=== PATIENT | female | born 1965 | race Caucasian/White ===

== ENCOUNTER 2024-05-01 09:40 | Observation (INO) | payer SELFPAY ==
[2024-05-01] VITALS (29 sets, daily range): BP systolic 106–136; BP diastolic 51–88; PULSE 66–88; RESP 7–20; TEMP 35.7–36.9; O2SAT 89–99; BMI 30.9
--- NOTE | 2024-05-01 09:43 | XRR_ITS ---
PROCEDURE INFORMATION: Exam: XR Right Knee Exam date and time: 05/01/2024 9:53 AM Age: 58 years old Clinical indication: Injury or trauma; Fall; Blunt trauma; Knee; Right; Additional info: Fall, knee pain TECHNIQUE: Imaging protocol: Radiologic exam of the right knee. Views: 3 views. COMPARISON: No relevant prior studies available. FINDINGS: Bones/joints: Comminuted fracture of the proximal tibia. Suprapatellar knee joint effusion with likely lipohemarthrosis. Soft tissues: Soft tissues appear mildly swollen about the lower knee. XR/XR knee RT 3V* [id number] IMPRESSION: 1. Comminuted fracture of the proximal tibia. 2. Suprapatellar knee joint effusion with likely lipohemarthrosis.
[2024-05-01] MEDS: HYDROmorphone 1 mg/mL INJ 1 mL IVP ×2 (09:54→11:15)
--- NOTE | 2024-05-01 09:56 | XRR_ITS ---
PROCEDURE INFORMATION: Exam: XR Chest Exam date and time: 05/01/2024 9:57 AM Age: 58 years old Clinical indication: Pre-operative exam; Cardiovascular screening and respiratory screening exam; Additional info: Knee fracture, presurgical workup TECHNIQUE: Imaging protocol: Radiologic exam of the chest. Views: 1 view. COMPARISON: CR XR chest 1V [id number] 11/21/2018 10:59 AM FINDINGS: Lungs: Unremarkable. No consolidation. Pleural spaces: Unremarkable. No pleural effusion. No pneumothorax. Heart/Mediastinum: Unremarkable. No cardiomegaly. Bones/joints: Unremarkable. XR/XR chest 1V portable [id number] IMPRESSION: No acute findings.
--- NOTE | 2024-05-01 09:57 | W.ED.EXTPRO ---
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 She has swelling in her proximal lower leg and knee. Appears to have some deformity. Severe pain with any movement. She is neurovascularly intact. She suffered no other injuries. She did not hit her head. She had no loss consciousness. She is not on any blood thinners. She has no major medical problems. Last food and drink was last night at 8 PM. Review of Systems Narrative: Constitutional symptoms: Negative except as documented in HPI. Skin symptoms: Negative except as documented in HPI. Eye symptoms: Negative except as documented in HPI. ENMT symptoms: Negative except as documented in HPI. Respiratory symptoms: Negative except as documented in HPI. Cardiovascular symptoms: Negative except as documented in HPI. Gastrointestinal symptoms: Negative except as documented in HPI. Genitourinary symptoms: Negative except as documented in HPI. Musculoskeletal symptoms: Negative except as documented in HPI. Neurologic symptoms: Negative except as documented in HPI. Psychiatric symptoms: Negative except as documented in HPI. Endocrine symptoms: Negative except as documented in HPI. [facility] ED PFSH: Medical History (Updated 05/01/24 @ 10:23 by Brenda Amaya MD) Hot flashes Obesity (BMI 30-39.9) Social History (Updated 02/18/21 @ 08:12 by Laura Gann LPN) Smoking and tobacco/nicotine status: former use of tobacco/nicotine Second hand smoke exposure: No Alcohol intake: never Physical Exam Narrative: EXAM NARRATIVE: General: Alert, no acute distress. Skin: Warm, dry. Head: Normocephalic, atraumatic. Neck: Supple, trachea midline. Eye: Extraocular movements are intact. Ears, nose, mouth and throat: mucosa moist. Cardiovascular: Regular, Normal peripheral perfusion. Respiratory: Lungs are clear to auscultation, respirations are non-labored, breath sounds are equal, Symmetrical chest wall expansion. Gastrointestinal: Soft, Nontender, Non distended Musculoskeletal: Deformity and swelling of the proximal right lower leg/tibial area. Patient is neurovascularly intact. Severe pain with any sort of movement and it appears somewhat unstable. Neurological: Alert and oriented, No focal neurological deficit observed. Psychiatric: Cooperative, appropriate mood & affect. Course Vital Signs: Vital signs: Vital Signs Temperature 97.6 F 05/01/24 09:41 Pulse Rate 74 05/01/24 09:41 Respiratory Rate 18 05/01/24 09:54 Blood Pressure 129/58 05/01/24 09:41 Pulse Oximetry 97 05/01/24 09:54 Oxygen Delivery Me thod Room Air 05/01/24 09:41 MDM - Extremity (Nontraumatic) Medical Decision Making Medical decision making: Differential diagnosis including but not limited to and based on the above HPI, review of systems and physical exam: Have concern for leg fracture so an x-ray was ordered. This showed a proximal tibial plateau fracture so chest x-ray and presurgical workup including lab work, coags and an EKG were ordered. Orders placed to evaluate differential diagnosis based on the above differential, HPI and physical exam X-ray of the right knee: Comminuted fracture of the proximal tibia. Large joint effusion. This was reviewed and interpreted by myself the emergency room physician. I also reviewed the radiology report. Chest x-ray: No acute process. No infiltrate. No pneumothorax. This was reviewed and interpreted by myself the ER physician. Consultation: I spoke with Dr. Gibbons who is on-call for orthopedics. He reviewed the films with me. He agrees to admission. He will take the patient to the OR this afternoon for an external fixation. Lab Review: Laboratory results were reviewed and interpreted by myself the emergency room physician. I have ordered presurgical lab workup. This is pending at the time of admission. EKG: Time 10:50 AM rate 68. Normal sinus rhythm, No ST-T changes, no ectopy, normal AL & QRS intervals, This was reviewed and interpreted by myself the ER physician at 10:55 AM I reviewed the patient's medical record. Reexamination: Patient has some improvement in pain. She has had an itching initially with Dilaudid. She is requesting a second dose at the time of admission. She has no increased work of breathing. No altered mental status. She continues to have a good pulse. She complains of a cold foot and and we placed a blanket on and that is improved. She still has good cap refill and good pulses. Assessment and plan: Tibial plateau fracture -I discussed the patient with the orthopedist on-call who is admitting the patient. - Discussed findings and plan with patient. Answered any questions. - All imaging was reviewed and interpreted personally by myself, the ER physician. - Evaluation and treatment of this problem were appropriate in the emergency setting Lab Data Radiology Impressions Knee X-Ray 05/01/24 09:43 IMPRESSION: 1. Comminuted fracture of the proximal tibia. 2. Suprapatellar knee joint effusion with likely lipohemarthrosis. Chest X-Ray 05/01/24 09:56 IMPRESSION: No acute findings. All radiology interpretation(s) finalized by discharge Discharge Plan Discharge Patient Disposition: Admitted As Inpatient Clinical Impression: Tibial plateau fracture, right Qualifiers: Encounter type: initial encounter Fracture type: closed Qualified Code(s): S82.141A - Displaced bicondylar fracture of right tibia, initial encounter for closed fracture Condition: Stable Coding Level of Care Code ED Civil Geotechnical Engineer for Deepti Schafer
--- NOTE | 2024-05-01 10:19 | ECG_ITS ---
[facility] Test Date: 2024-05-01 Pat Name: Jacqueline Corrales Department: Room: Gender: Female Blade Groover: : 1965 Requested By: Brenda Sarkar Order Number: [id number] Ruiz MD: Bryon Guzman M.D. Measurements Intervals [place] Rate: 68 P: 49 MO: 180 QRS: 9 QRSD: 77 T: 32 QT: 399 QTc: 427 Interpretive Statements SINUS RHYTHM No previous ECG available for comparison Electronically Signed On 05-01-2024 14:31:26 CDT by Bryon Guzman M.D. [id number]
--- NOTE | 2024-05-01 11:16 | PC.PHAR ---
PER [facility] PT TAKES NO CURRENT MEDICATIONS.
--- NOTE | 2024-05-01 11:34 | P.ANESASSM_ITS ---
Pre-Anesthetic Assessment Height/Weight: Height 1.63 m Weight 81.647 kg Temp Pulse Resp BP Pulse Ox O2 Del Method 97.6 F 71 17 114/57 97 Room Air 05/01/24 09:41 05/01/24 11:00 05/01/24 11:15 05/01/24 11:00 05/01/24 11:15 05/01/24 09:41 Operation Date: 05/01/24 15:10 Proposed Procedures p External Fixator Lower Extremity(Right) - Curtis Gibbons, DO Familial anesthetic complications: None Was Beta Maryjo taken within 24 hours: N/A Was Clonidine taken within 24 hours: N/A Last intake: > 8 hrs per patient and family at bedside (Hasn'te eaten since last night, small amount of water this morning for a pill) Social No alcohol and No tobacco Exam alert, oriented x 3, clear to auscultation bilaterally and regular rate & rhythm Airway Mallampati: Class II Dentition: full Anesthetic Plan ASA status: 1 Anesthesia: General Risk of > 500 ml blood loss (7ml/kg in children): No Medications/Allergies Home Medications Medication Instructions Recorded Confirmed Last Taken Type No Known Home Medications 05/01/24 05/01/24 Unknown History Allergies Allergy/AdvReac Type Severity Reaction Status Date / Time codeine Allergy ADR-Itching Verified 05/01/24 11:24 Penicillins Allergy Unknown Verified 02/18/21 08:10 sulfamethoxazole Allergy RASH Verified 02/18/21 08:10 [From Bactrim] trimethoprim [From Bactrim] Allergy RASH Verified 02/18/21 08:10 [facility] Anesthesia Medical History (Updated 05/01/24 @ 10:23 by Brenda Amaya MD) Hot flashes Obesity (BMI 30-39.9) Social History (Updated 02/18/21 @ 08:12 by Laura Gann LPN) Smoking and tobacco/nicotine status: former use of tobacco/nicotine Second hand smoke exposure: No Alcohol intake: never Data Anesthesia Cardiac Studies: No Data to Display
[2024-05-01 11:42] LABS: Basophils # 0.1 10^3/uL (0.0-0.1); Basophils % 0.3 %; Eosinophils % 0.1 %; Hematocrit 41.6 % (36-47); Lymphocytes # 1.2 10^3/uL (0.8-4.8); Mean Corpuscular HGB Conc 32.9 g/dL (30-55); Mean Corpuscular Hemoglobin 29.2 pg (27-33); Mean Corpuscular Volume 88.7 fl (85-98); Mean Platelet Volume 10.6 fL (7.4-10.4); Monocytes # 0.8 10^3/uL (0.2-0.9); Monocytes % 3.2 %; Neutrophils # 22.01 10^3/uL (1.8-7.7); Neutrophils % 90.2 %; Nucleated Red Blood Cells % 0 %; Platelet Count 214 10^3/cmm (157-399); Red Blood Count 4.69 10^6/uL (3.85-5.65); White Blood Count 24.42 10^3/uL (3.29-11.43)
[2024-05-01 11:52] LABS: INR 1.03 (0.8-1.2)
[2024-05-01 11:53] LABS: Partial Thromboplastin Time 24.6 SECONDS (23.9-36.7)
[2024-05-01] MEDS: sodium chloride 0.9% 1,000 ML 30 ML IV (11:55)
[2024-05-01 11:58] LABS: Alanine Aminotransferase 17 U/L (0-33); Alkaline Phosphatase 99 U/L (35-105); Aspartate Amino Transferase 20 U/L (0-32); Blood Urea Nitrogen 18 mg/dL (6-20); Calcium 8.6 mg/dL (8.5-10.5); Carbon Dioxide 22 mmol/L (22-29); Chloride 107 mmol/L (98-107); Creatinine Clr Calc Pharmacy 108.2219; Globulin 3.7 g/dL (1.3-4.6); Glomerular Filtration Rate 103.4 mL/min (90-130); Glucose 110 mg/dL (65-115); Osmolality Calculated 293 mOsm/kg (285-295); Sodium 140 mmol/L (136-145); Total Bilirubin 0.3 mg/dL (0.15-1.2); Total Protein 7.7 g/dL (6.6-8.7)
--- NOTE | 2024-05-01 12:00 | P.HP_ITS ---
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 She has swelling in her proximal lower leg and knee. Appears to have some deformity. Severe pain with any movement. She is neurovascularly intact. She suffered no other injuries. She did not hit her head. She had no loss consciousness. She is not on any blood thinners. She has no major medical problems. Last food and drink was last night at 8 PM. Review of Systems 2 General: Reports: 10 or more systems reviewed and unremarkable except in HPI and below Narrative: See HPI Const: Denies: fever(s) Eyes: Denies: change in vision ENMT: Reports: nasal congestion and sinus pain (fullness sensation in sinuses) Card: Denies: chest pain Resp: Denies: dyspnea GI: Denies: abdominal pain or change in bowel habits : Denies: difficulty voiding Musc: Reports: joint pain Skin/Breast: Denies: rash Neuro: Reports: headache(s) Psych: Denies: anxiety or depression Endo: Reports: hot flashes Hermann/Lymph: Denies: easy bruising All/Imm: Denies: urticaria Medications/Allergies Home Medications Medication Instructions Recorded Confirmed Last Taken Type No Known Home Medications 05/01/24 05/01/24 Unknown History Allergies Allergy/AdvReac Type Severity Reaction Status Date / Time codeine Allergy ADR-Itching Verified 05/01/24 11:24 Penicillins Allergy Unknown Verified 02/18/21 08:10 sulfamethoxazole Allergy RASH Verified 02/18/21 08:10 [From Bactrim] trimethoprim [From Bactrim] Allergy RASH Verified 02/18/21 08:10 PFSH Acute 2 PFSH: Medical History (Updated 05/01/24 @ 10:23 by Brenda Amaya MD) Hot flashes Obesity (BMI 30-39.9) Social History (Updated 02/18/21 @ 08:12 by Laura Gann LPN) Smoking and tobacco/nicotine status: former use of tobacco/nicotine Second hand smoke exposure: No Alcohol intake: never Vitals/I&O/Wt Last Vital Signs Temp 97.6 F 05/01/24 09:41 Pulse 71 05/01/24 11:00 Resp 17 05/01/24 11:15 BP 114/57 05/01/24 11:00 Pulse Ox 97 05/01/24 11:15 O2 Del Method Room Air 05/01/24 11:34 Weight last 48 hrs Weight 180 lb Physical Exam 2 Narrative: right knee swelling Data 05/01/24 11:30 05/01/24 11:30 A&P Assessment and plan (1) Tibial plateau fracture, right: ex fix Qualifiers: Encounter type: initial encounter Fracture type: closed Qualified Code(s): S82.141A - Displaced bicondylar fracture of right tibia, initial encounter for closed fracture Attestations 2 Medical Necessity Statement*: pain Coding Level of Care Code Acute Code for [facility] Fwd Diagnoses Tibial plateau fracture, right S82.141A Encounter type: initial encounter Fracture type: closed
[2024-05-01] MEDS: scopolamine 1.5 Patch 1 PATCH TRANSDERMA (12:02)
[2024-05-01 12:16] LABS: Anion Gap 15.1 (5-19); Potassium 4.1 mmol/L (3.5-5.1)
[2024-05-01] MEDS: clindamycin 600 MG/50 ML PREMIX 100 MG IV ×2 (12:21→20:50)
--- NOTE | 2024-05-01 13:12 | XR_ITS ---
WS: [id number] XR knee RT 1-2V [id number] REASON FOR EXAM: ex fix knee, or pic FINDINGS: External fixation of oblique tibial metaphysis and vertical lateral tibial plateau fractures with goo d position and alignment of the fracture fragments with spiritism of normal femoral tibial alignmen t. There does appear to be a depressed segment of the lateral tibial plateau fracture. XR/XR knee RT 1-2V [id number] IMPRESSION: External fixation of complex proximal tibial fracture as above.
--- NOTE | 2024-05-01 13:14 | PM.OP ---
Operative Report Date of procedure: May 01, 2024 Pre-op diagnosis: Right bicondylar tibial plateau fracture Post-op diagnosis: same Procedure done: External fixator to right tibial plateau fracture on the right leg Surgeon: Curtis Gibbons DO Estimated blood loss (mL): 5 Procedure: External fixator to right tibial plateau fracture on the right leg Patient is brought to the operative suite after undergoing anesthesia was placed in supine position all areas impingement well-padded. Patient's prepped and draped normal sterile fashion. 2 stab incisions made in the tibia to stab incision made in the femur. 2 Schanz pins were placed in the tibia and 2 Schanz pins were placed in the tibia. This was done under C-arm guidance. The bolts were attached to the pins and rods were attached to the bolts martha martha clamp was then placed on the rods. The pins to rods were tightened down and then traction was applied. And then the martha martha clamp was tightened down. AP lateral fluoroscopy ensured that the tibial plateau fracture was reduced. And then on the martha was placed from the 2 proximal pins. All pins were then retightened all pins were then retightened. Dressings were applied patient was transferred to the PACU in stable condition.
[2024-05-01] MEDS: fentaNYL 50 mcg/mL INJ 2mL IVP ×2 (13:36→13:50)
--- NOTE | 2024-05-01 14:10 | ANE.PACU2 ---
Inpatient post-anesthesia follow up: Airway intact: Yes Vital signs: Temperature 97.6 F Pulse Rate 72 Respiratory Rate 16 Blood Pressure 124/71 Pulse Oximetry 95 Oxygen Delivery Me thod Room Air Oxygen Flow Rate 2 Fraction of Inspir ed Oxygen Hydration adequate: Yes Nausea and vomiting: No Pain level: 1 Mental status: Baseline
[2024-05-01] MEDS: sodium chloride 0.9% 1,000 ML 75 ML IV (14:57)
[2024-05-01] MEDS: morphine 4 mg/mL SDV 1 mL IVP ×2 (14:57→19:06)
[2024-05-01] MEDS: ondansetron 2 mg/ML SDV 2 mL 4 MG IVP (14:58)
[2024-05-01] MEDS: HYDROcodone-acetaminophen 5-325 mg Tablet PO ×2 (17:23→20:48)
--- NOTE | 2024-05-01 19:08 | PC.NURSE ---
Right calf measures 42cm around. Pt feels as though it is tight
[2024-05-01 19:46] LABS: Add Urine Culture? No; Bacteria Urine TRACE /hpf; Bilirubin Urine Neg (Negative); Blood Urine Neg (Negative); Glucose Urine UA Norm (Normal); Ketones Urine Negative (Negative); Leukocyte Esterase Urine Negative (Negative); Mucus Urine 1+ /hpf; Nitrate Urine Negative (Negative); Protein Urine Neg (Negative); RBC Urine 0-4 /hpf (0-2); Specific Gravity, Urine 1.025 (1.005-1.030); Squamous Epithelial Cell Urine 0-4 /hpf (0-5); Urine Appearance Slightly Cloudy (CLEAR); Urine Color Yellow (Yellow); Urobilinogen Urine Norm (Negative); WBC Urine 0-4 /hpf (0-5); pH Urine 5 (5-7)
[2024-05-01] MEDS: apixaban 5 mg Tablet 2.5 MG PO (20:49)
[2024-05-01] MEDS: morphine 4 mg/mL SDV 1 mL 2 MG IVP (21:59)
[2024-05-02] VITALS (9 sets, daily range): BP systolic 94–120; BP diastolic 55–80; PULSE 80–85; RESP 16–18; TEMP 36.6–37; O2SAT 94–98
[2024-05-02] MEDS: morphine 4 mg/mL SDV 1 mL IVP ×2 (00:28→08:51)
[2024-05-02] MEDS: clindamycin 600 MG/50 ML PREMIX 100 MG IV (04:17)
[2024-05-02] MEDS: HYDROcodone-acetaminophen 5-325 mg Tablet PO (04:17)
[2024-05-02] MEDS: sodium chloride 0.9% 1,000 ML 75 ML IV (04:18)
[2024-05-02] MEDS: apixaban 5 mg Tablet 2.5 MG PO (08:51)
--- NOTE | 2024-05-02 08:58 | PM.DCS ---
Discharge Providers Date of Admission: 05/01/24 13:16 Date of Discharge: May 02, 2024 Attending Provider at Admission: Curtis Gibbons DO Attending Provider at Discharge: Curtis Gibbons DO Primary Care Provider: MICHELLE Alatorre Diagnoses at Discharge Discharge Diagnosis (1) Tibial plateau fracture, right: Status: Acute Qualifiers: Encounter type: initial encounter Fracture type: closed Qualified Code(s): S82.141A - Displaced bicondylar fracture of right tibia, initial encounter for closed fracture Reason for Visit Reason for Visit: FALL Physical Exam Narrative: Leg swelling patient is able to wiggle toes without any pain. Discharge Data Studies Completed and Pending Completed Studies During Hospitalization Category Date Time Status XR chest 1V portable [id number] Stat Exams 05/01/24 09:56 Completed XR knee RT 3V* [id number] Stat Exams 05/01/24 09:43 Completed Pending at discharge Category Date Time Status CT knee RT wo con* [id number] Routine Cat Scan 05/02/24 09:30 Ordered XR knee RT 1-2V [id number] Routine Exams 05/01/24 13:12 Taken CBC Auto Diff [Complete Blood Count w/Auto] Routine Lab 05/02/24 07:48 Ordered Radiology Impressions Knee X-Ray 05/01/24 09:43 IMPRESSION: 1. Comminuted fracture of the proximal tibia. 2. Suprapatellar knee joint effusion with likely lipohemarthrosis. Chest X-Ray 05/01/24 09:56 IMPRESSION: No acute findings. Laboratory Results WBC 24.42 10^3/uL (3.29-11.43) H 05/01/24 11:30 RBC 4.69 10^6/uL (3.85-5.65) 05/01/24 11:30 Hgb 13.70 g/dL (11.27-16.99) 05/01/24 11:30 Hct 41.6 % (36-47) 05/01/24 11:30 MCV 88.7 fl (85-98) 05/01/24 11:30 MCH 29.2 pg (27-33) 05/01/24 11:30 MCHC 32.9 g/dL (30-55) 05/01/24 11:30 RDW 13.0 % (12.1-15.1) 05/01/24 11:30 Plt Count 214 10^3/cmm (157-399) 05/01/24 11:30 MPV 10.6 fL (7.4-10.4) H 05/01/24 11:30 Neut % (Auto) 90.2 % 05/01/24 11:30 Lymph % (Auto) 5.0 % 05/01/24 11:30 [place] % (Auto) 3.2 % 05/01/24 11:30 Eos % (Auto) 0.1 % 05/01/24 11:30 Baso % (Auto) 0.3 % 05/01/24 11:30 Neut # (Auto) 22.01 10^3/uL (1.8-7.7) H 05/01/24 11:30 Lymph # (Auto) 1.2 10^3/uL (0.8-4.8) 05/01/24 11:30 [place] # (Auto) 0.8 10^3/uL (0.2-0.9) 05/01/24 11:30 Eos # (Auto) 0.0 10^3/uL (0.0-0.8) 05/01/24 11:30 Baso # (Auto) 0.1 10^3/uL (0.0-0.1) 05/01/24 11:30 Nucleated RBC % (auto) 0 % 05/01/24 11:30 Nucleated RBCs # 0.0 /100WBC 05/01/24 11:30 PT 13.80 SECONDS (12.1-14.9) 05/01/24 11:30 INR 1.03 (0.8-1.2) 05/01/24 11:30 APTT 24.6 SECONDS (23.9-36.7) 05/01/24 11:30 Sodium 140 mmol/L (136-145) 05/01/24 11:30 Potassium 4.1 mmol/L (3.5-5.1) 05/01/24 11:30 Chloride 107 mmol/L (98-107) 05/01/24 11:30 Carbon Dioxide 22 mmol/L (22-29) 05/01/24 11:30 Anion Gap 15.1 (5-19) 05/01/24 11:30 BUN 18 mg/dL (6-20) 05/01/24 11:30 Creatinine 0.6 mg/dL (0.5-0.9) 05/01/24 11:30 GFR Calculation 103.4 mL/min (90-130) 05/01/24 11:30 Glucose 110 mg/dL (65-115) 05/01/24 11:30 Calculated Osmolality 293 mOsm/kg (285-295) 05/01/24 11:30 Calcium 8.6 mg/dL (8.5-10.5) 05/01/24 11:30 Total Bilirubin 0.3 mg/dL (0.15-1.2) 05/01/24 11:30 AST 20 U/L (0-32) 05/01/24 11:30 ALT 17 U/L (0-33) 05/01/24 11:30 Alkaline Phosphatase 99 U/L (35-105) 05/01/24 11:30 Total Protein 7.7 g/dL (6.6-8.7) 05/01/24 11:30 Albumin 4.0 g/dL (3.5-5.2) 05/01/24 11:30 Globulin 3.7 g/dL (1.3-4.6) 05/01/24 11:30 Urine Color Yellow (Yellow) 05/01/24 19:00 Urine Appearance Slightly cloudy (CLEAR) 05/01/24 19:00 Urine pH 5 (5-7) 05/01/24 19:00 Ur Specific [place] 1.025 (1.005-1.030) 05/01/24 19:00 Urine Protein Neg (Negative) 05/01/24 19:00 Urine Glucose (UA) Norm (Normal) 05/01/24 19:00 Urine Ketones Negative (Negative) 05/01/24 19:00 Urine Blood Neg (Negative) 05/01/24 19:00 Urine Nitrate Negative (Negative) 05/01/24 19:00 Urine Bilirubin Neg (Negative) 05/01/24 19:00 Urine Urobilinogen Norm mg/dL (Negative) 05/01/24 19:00 Ur Leukocyte Esterase Negative (Negative) 05/01/24 19:00 Urine RBC 0-4 /hpf (0-2) H 05/01/24 19:00 Urine WBC 0-4 /hpf (0-5) H 05/01/24 19:00 Ur Squamous Epith Cells 0-4 /hpf (0-5) H 05/01/24 19:00 Amorphous Sediment Not Reportable 05/01/24 19:00 Urine Bacteria Trace /hpf (NONE) 05/01/24 19:00 Urine Mucus 1+ /hpf 05/01/24 19:00 Vitals Last Vital Signs Temp 98.3 F 05/02/24 07:57 Pulse 85 05/02/24 07:57 Resp 16 05/02/24 08:51 BP 99/56 05/02/24 07:57 Pulse Ox 94 05/02/24 07:57 O2 Del Method Room Air 05/02/24 07:57 O2 Flow Rate 2 05/01/24 14:00 Discharge Plan Discharge Patient Disposition: Home Condition: Stable Prescriptions: New hydrocodone-acetaminophen 5-325 mg tablet 1 - 2 tab PO .Q4-6H Qty: 40 0RF Eliquis 2.5 mg tablet 2.5 mg PO BID 10 Days Qty: 20 0RF Rx Instructions: stop 5 days before surgery Discharge Orders: Discharge Order (Routine); Ordered 05/02/24 Ordered By: Curtis Gibbons Referrals: HANNA Manning, MICHELLE [Primary Care Provider] - Herb Irby DO [Physician] - 05/18/24 3:15 pm Discharge Diet: Advance as tolerated Discharge Activity: Limit activity as instructed Patient Instructions: Opioid Safety Activity Restrictions/Additional Instructions: You are being discharged from the hospital today during which time you have been under the care of Dr. Gibbons. You had a tibial plateau fracture. You were treated for this injury with external fixation of your right knee. You may resume you normal diet (including any special diets as directed by your primary doctor) as well as your home medications. You should follow up with you primary doctor if you have any questions regarding medication you took prior to your stay in the hospital. You may take your pain medication as prescribed. After the first few days, take your pain medication as needed. Do not drive or drink alcohol while taking your pain medication. Your injury may increase your risk of developing a blood clot,or DVT, in your arm or leg. This could potentially dislodge and travel to your lungs and become a life threatening condition called apulmonary embolus,or PE. You have been prescribed Eliquis to be taken to prevent this. Frequent movement of the toes will also help prevent this from occurring. If you develop any new or worsening cough, chestpain, bloody sputum or shortness of breath, call 911 or go to the EmergencyRoom. Always keep your surgical incision/dressing clean and dry. If you experience increasing pain at your incision site, redness, swelling, increasing discharge, foul odors, or fevers (greater than 100.4), night sweats or chills you should call the office at the above number. If you feel this is an emergency you should be evaluated in the Emergency Department of a nearby hospital. Orthopedic Patient Instructions Summary: Weight Bearing: Nonweightbearing right lower extremity Activity: As tolerated. Diet: Regular. Wound Care: Keep dressing clean and dry. Pin care daily with soap and water Anticoagulation: Eliquis Pain Medication: Take only as needed. Ice, rest and elevation will be of great benefit. Please plan to follow-up [facility] Dr Gibbons in 2 weeks. May 16 you will need to call the clinic [phone] to schedule this visit. Thank you far allowing me to participate in your care. Do not hesitate to call the office with any questions or concerns. Discharge Attestations Time Spent in Discharge Care*: less than 30 min Quality Metrics Clinical Quality Measures [ No reported AMI, CVA or VTE this stay] Coding Level of Care Code Acute Code for [facility] Diagnoses Tibial plateau fracture, right S82.141A Encounter type: initial encounter Fracture type: closed
--- NOTE | 2024-05-02 09:05 | PC.CHAP ---
Pastoral Care Encounter/Spiritual Assessment Type of Contact [] Declined top stitcher visit [] Patient/Family/Request visit [] Outpatient visit [] Follow-up visit [] Physician referral [] Code/Alert [x] Routine visit [] Staff referral [] Actively dying [] Patient sleeping [x] Family support [] [] Out of room [] Palliative care [] [] Receiving care in room [] Pre-surgical visit [] Trauma [] Long length of stay [] ICU visit [] Other: Relational/Emotional Strength [x] Patient feels connected with others/family/visitors/staff [] Distress [] Loneliness/isolation [] Abandonment Spirituality of Patient [] Person of Vicky [] Attends Restorationist of their Vicky [] Believes in Prayer [] Reads Bible or Yazidi materials [] There are Spiritual issues to be addressed Tire Fixer Interventions [] Prayer [x] Active listening [x] Non-anxious presence [x] Spiritual/emotional support [] Crisis/trauma care [] Spiritual counseling [] Bereavement support [] Provided bereavement packet [] Provided Bible/devotional materials [] Provided toy/stuffed animal, coloring book to patient or family member [] Provided Communion [] Anointing/[place] [] Salvation [x] Completed spiritual assessment [] Other: Impact on Illness or Injury [] Angry [] Fearful [] Anxious [] Often cries [] Exhaustion [] Unable to work [] Unable to attend pentecostal [] Unable to walk/stand [] Unable to read [] Unable to drive [] Unable to eat/drink [] Unable to sleep [] Unable to be with family [] Patient intubated [] Other: Summary Time spent with patient 5 min
--- NOTE | 2024-05-02 09:30 | CT_ITS ---
WS: [id number] CT RIGHT KNEE: NONCONTRAST HISTORY: tibial plateau fx Technique: All CT scans at [facility] use at least one of these dose optimization techniques: automated exposure control; mA and/or kV adjustment per patient size (includes targeted exams where dose is matched to clinical indication); or iterative reconstruction. DLP: 304.75 mGy.cm COMPARISON: Radiograph 05/01/2024 External fixator device is noted. There is a markedly comminuted fracture involving the tibial plateau and proximal tibia. Lateral tibi al plateau is depressed by approximately 8 mm. Lateral subluxation of the tibial plateau by 10 mm. Av ulsion fracture extends to the base of the tibial spines. There are multiple fracture components extending in an oblique, vertical and transverse positions. Ob lique fracture through the tibial plateau into the diaphysis is by 7 mm. There is a vertica l fracture component extending anterior lateral to the tibia. Lateral vertical fracture extends 8.7 c m into the proximal tibia. The vertical fracture along the medial tibia is approximately 6 cm in renee th. Transverse fracture at the junction of the metadiaphysis. There is a separate component of the ti bial plateau fracture that extends anterior and posterior. There is involvement also of the medial ti bial metaphysis. Femoral condyles are intact. Small intra-articular loose bodies are noted. There is a large amount of soft tissue edema. Large lipohemarthrosis. Vascular calcifications. CT/CT knee RT wo con* [id number] IMPRESSION: 1. Markedly comminuted proximal tibial fracture. There are vertical, oblique a nd transverse components of the tibial fracture. Fracture extends across the me dial to lateral tibial plateau. 2. Vertical lateral tibial fracture extends 8.7 cm into the diaphysis. Additio nal vertical fracture along the medial tibia. 3. Lateral subluxation of the lateral tibial plateau by 10 mm. 4. Small loose body/avulsion fractures in the joint space. 5. Large lipohemarthrosis.
[2024-05-02 11:36] LABS: Basophils % 0.1 %; Hematocrit 33.5 % (36-47); Lymphocytes # 1.6 10^3/uL (0.8-4.8); Lymphocytes % 5.7 %; Mean Corpuscular HGB Conc 32.2 g/dL (30-55); Mean Corpuscular Volume 89.8 fl (85-98); Mean Platelet Volume 9.9 fL (7.4-10.4); Monocytes # 1.3 10^3/uL (0.2-0.9); Monocytes % 4.6 %; Neutrophils # 24.32 10^3/uL (1.8-7.7); Neutrophils % 88.5 %; Nucleated Red Blood Cells % 0 %; Platelet Count 270 10^3/cmm (157-399); Red Blood Count 3.73 10^6/uL (3.85-5.65); Red Cell Distribution Width 13.3 % (12.1-15.1); White Blood Count 27.51 10^3/uL (3.29-11.43)
--- NOTE | 2024-05-02 12:08 | PC.NURSE ---
Discharge Note Patient discharged to home via private vehicle accompanied by . Discharge instructions reviewed with patient and/or healthcare representative. Mobile pharmacy medications and/or prescriptions provided. Belongings/home medications returned.
--- NOTE | 2024-05-02 12:15 | PC.OT ---
Pt seen for OT evaluation. Pt provided with leg traffic safety administrator and educated on how to use leg traffic safety administrator and pt able to demonstrate accurately how to use it. Pt declines full OT eval with not requiring anything else at this time. Due to discharge status and high level of function pt does not require OT services at this time.
== END 2024-05-02 13:16 | disposition home or self-care (01) ==
LOC: ER 10:26 → OR 10:29 → MEDSURG 13:17
PROVIDERS: Admitting Provider Orthopaedic Surgery; Emergency Provider Emergency Medicine; PCP Nurse Practitioner Family; Visit Provider Orthopaedic Surgery
PROC: (CPT 20692; principal; 2024-05-01 15:00)
DX: S82.141A Displaced bicondylar fracture of right tibia, initial encounter for closed fracture (principal); W19.XXXA Unspecified fall, initial encounter; E66.9 Obesity, unspecified; Z68.30 Body mass index [BMI] 30.0-30.9, adult
CPT/HCPCS: 20692; 27532; 36415; 71045; 73560; 73562; 73700; 76000; 80053; 81001; 85025; 85610; 85730; 93005; 96374; 97116; 97161; 97530; 99285; A6446; C1713; G0378; J1100; J1170; J1200; J1885; J2270; J2405; J2704; J3010; J3490; J7030

== ENCOUNTER 2024-05-17 11:46 | Observation (INO) | payer SELFPAY ==
[2024-05-17] VITALS (31 sets, daily range): BP systolic 122–155; BP diastolic 71–95; PULSE 79–100; RESP 15–20; TEMP 36.4–37.7; O2SAT 91–100; BMI 30.9
[2024-05-17] MEDS: scopolamine 1.5 Patch 1 PATCH TRANSDERMA (06:20)
[2024-05-17] MEDS: sodium chloride 0.9% 1,000 ML 30 ML IV (06:21)
--- NOTE | 2024-05-17 06:59 | P.ANESASSM_ITS ---
Pre-Anesthetic Assessment Height/Weight: Height 1.63 m Weight 81.647 kg Temp Pulse Resp BP Pulse Ox O2 Del Method 98.0 F 79 16 133/77 97 Room Air 05/17/24 05:58 05/17/24 05:58 05/17/24 05:58 05/17/24 05:58 05/17/24 05:58 05/17/24 05:58 Operation Date: 05/17/24 07:00 Proposed Procedures p ORIF Tibial Plateau(Right) - Curtis H Edwige, DO Familial anesthetic complications: None Was Beta Maryjo taken within 24 hours: N/A Was Clonidine taken within 24 hours: N/A Last intake: Intake Last Liquid Date 05/16/24 Last Liquid Time 17:30 Last Solid Date 05/16/24 Last Solid Time 17:30 Social Tobacco and No alcohol Exam alert, oriented x 3, clear to auscultation bilaterally and regular rate & rhythm Airway Mallampati: Class II Dentition: other (missing) GI Gastroesophageal Reflux Disease Anesthetic Plan ASA status: 2 Anesthesia: General Risk of > 500 ml blood loss (7ml/kg in children): No Medications/Allergies Home Medications Medication Instructions Recorded Confirmed Last Taken Type tramadol 50 mg tablet 50 mg PO Q6H PRN pain 10 days #40 05/09/24 05/17/24 05/17/24 Rx tabs acetaminophen 325 mg capsule 500 mg PO DAILY 05/16/24 05/17/24 05/16/24 History (Tylenol) apixaban 2.5 mg tablet (Eliquis) 2.5 mg PO DAILY 05/16/24 05/17/24 05/12/24 History Allergies Allergy/AdvReac Type Severity Reaction Status Date / Time Penicillins Allergy Unknown Verified 05/17/24 05:57 sulfamethoxazole Allergy RASH Verified 05/17/24 05:57 [From Bactrim] trimethoprim [From Bactrim] Allergy RASH Verified 05/17/24 05:57 hydrocodone AdvReac Intermediate other Verified 05/17/24 05:57 Current Medications Generic Name Dose Route Start Last Admin Trade Name Freq PRN Reason Stop Dose Admin Sodium Chloride 1,000 mls @ 30 mls/hr 05/17/24 06:00 05/17/24 06:21 Sodium Chloride 0.9% IV 05/18/24 05:59 30 mls/hr .Q24H ROBLES Administration PFSH Anesthesia Medical History (Updated 05/09/24 @ 09:58 by MICHELLE Lora) Right leg pain Hot flashes Obesity (BMI 30-39.9) Social History Smoking and tobacco/nicotine status: never used tobacco/nicotine Second hand smoke exposure: No Alcohol intake: never 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
[2024-05-17] MEDS: clindamycin 600 MG/50 ML PREMIX 100 MG IV ×3 (07:09→23:09)
[2024-05-17] MEDS: vancomycin 1,000 MG SDV 1000 MG XX (08:59)
--- NOTE | 2024-05-17 09:50 | PM.OP ---
Operative Report Date of procedure: May 17, 2024 Pre-op diagnosis: Bicondylar tibial plateau fracture ([place]atzker 6) Post-op diagnosis: same Procedure done: 1. Open reduction internal fixation of bicondylar plateau fracture 2. Removal of external fixator Surgeon: Curtis Gibbons DO Estimated blood loss (mL): 5 Procedure: 1. Open reduction internal fixation of bicondylar plateau fracture 2. Removal of external fixator Please manage obesity after undergoing anesthesia patient's placed in the supine position. All areas impingement well-padded. Patient's prepped draped in also fashion. Attention was brought to the medial side. A skin incision made medially pes tendons were reflected anteriorly fracture was identified a medial tibial plateau. Plate was placed. Screws placed distal to fracture using plate as a buttress to reduce the medial condyle. It was brought to the lateral side again skin incision made laterally fascia was split fracture was reduced elevating up the posterior angled fragment. A lateral tibial anterior plate from [employer] was then placed. Lag screws were placed across the fracture. Reducing the fracture. Then screws were placed into the shaft. More screws were placed across the tibia and then more screws were placed across the medial side. AP lateral fluoroscopy ensured that the fracture was in good position. Hardware is in good position. A meniscal decision was made to directly look at the lateral plateau plateau was reduced. Meniscus was then repaired to the plate. And then the wounds were closed of the lower layered fashion in a layered fashion with Vicryl and nylon suture. Sterile dressings were applied and patient is transferred to the PACU in stable condition.
[2024-05-17] MEDS: fentaNYL 50 mcg/mL INJ 2mL IVP ×2 (09:59→10:08)
[2024-05-17] MEDS: HYDROmorphone 1 mg/mL INJ 1 mL 0.5 MG IVP ×3 (10:21→10:45)
--- NOTE | 2024-05-17 12:51 | ANES.PROC ---
Anesthesia Procedures Procedure/Date: 05/17/24 Nerve Block ^: Nerve Block 1: Main Anesthesia: general anesthesia Time Out Performed: Yes Consent: requested by attending/covering physician, from patient, from other, risks and benefits reviewed and patient agrees to proceed Nerve block location: adductor canal (R) Anesthesia monitors applied: pulse oximetry, EKG, BP cuff and oxygen Nerve block position: supine Anesthetic Used: ropivicaine 0.5% (30 ml) and with decadron (4 mg) Ultrasound used to: recognize landmarks and visualize and ID femerol nerve Nerve Stimulator Used?: No Interscalene/Femoral BLK: 4 stimuplex 21 g needle used for position and inplane approach, visualize local anesthetic spread and no vascular puncture identified Injection: neg aspiration of heme Patient Tolerated Procedure: well Complications: none
--- NOTE | 2024-05-17 12:52 | ANE.PACU2 ---
Inpatient post-anesthesia follow up: Airway intact: Yes Vital signs: Temperature 97.6 F Pulse Rate 98 Respiratory Rate 18 Blood Pressure 146/78 Pulse Oximetry 98 Oxygen Delivery Me thod Nasal Cannula Oxygen Flow Rate 3 Fraction of Inspir ed Oxygen Hydration adequate: Yes Nausea and vomiting: No Pain level: 1 Mental status: Baseline
[2024-05-17] MEDS: ketorolac 30 mg/mL INJ IVP ×2 (13:00→19:38)
[2024-05-17] MEDS: oxyCODONE-APAP 5-325 mg Tablet PO ×2 (14:49→21:24)
[2024-05-17] MEDS: morphine 4 mg/mL SDV 1 mL 2 MG IVP (16:14)
--- NOTE | 2024-05-17 16:53 | XR_ITS ---
WS: [id number] XR tibia fibula RT 2V [id number] REASON FOR EXAM: SHAWN PICS FINDINGS: Medial and lateral sideplate and transverse screw fixation of proximal metadiaphyseal tibial fracture which extends into the lateral tibial plateau. Surgical appliances are intact and in proper position and alignment. Fracture fragments are in good position and alignment with reduction of the lateral tibial plateau de pression. XR/XR tibia fibula RT 2V [id number] IMPRESSION: Proximal right tibial fracture with internal fixation without abnormality.
[2024-05-18] VITALS (7 sets, daily range): BP systolic 99–111; BP diastolic 60–64; PULSE 64–90; RESP 16–18; TEMP 36.7–37.1; O2SAT 94–96
[2024-05-18] MEDS: clindamycin 600 MG/50 ML PREMIX 100 MG IV (06:04)
[2024-05-18] MEDS: oxyCODONE-APAP 5-325 mg Tablet PO (06:12)
--- NOTE | 2024-05-18 08:16 | PM.DCS ---
Discharge Providers Date of Admission: 05/17/24 11:46 Date of Discharge: May 18, 2024 Attending Provider at Admission: Curtis Gibbons DO Attending Provider at Discharge: Curtis Gibbons DO Primary Care Provider: MICHELLE Alatorre Reason for Visit Reason for Visit: S82.141A Physical Exam Narrative: Working with physical therapy when I walked in the room. Pain is controlled. Plan to be to see her back in 2 weeks Discharge Data Studies Completed and Pending Completed Studies During Hospitalization Category Date Time Status XR tibia fibula RT 2V [id number] Routine Exams 05/17/24 16:53 Completed Radiology Impressions Tibia/Fibula X-Ray 05/17/24 16:53 IMPRESSION: Proximal right tibial fracture with internal fixation without abnormality. Vitals Last Vital Signs Temp 98.4 F 05/18/24 04:00 Pulse 73 05/18/24 06:14 Resp 16 05/18/24 06:12 BP 104/64 05/18/24 06:14 Pulse Ox 94 05/18/24 04:00 O2 Del Method Room Air 05/18/24 04:00 O2 Flow Rate 3 05/17/24 11:43 Discharge Plan Discharge Patient Disposition: Home Condition: Stable Prescriptions: New oxycodone 5 mg tablet 5 - 10 mg PO Q4H PRN (Reason: pain) 7 Days Qty: 40 0RF Continued acetaminophen [Tylenol] 325 mg Capsule 500 mg PO DAILY Discontinued tramadol 50 mg tablet 50 mg PO Q6H PRN (Reason: pain) 10 Days Qty: 40 0RF Eliquis 2.5 mg tablet 2.5 mg PO DAILY Discharge Orders: Discharge Order (Routine); Ordered 05/18/24 Ordered By: Curtis Gibbons Discharge Diet: Advance as tolerated Discharge Activity: Limit activity as instructed Patient Instructions: Acute Wound Care (DC), Opioid Safety, Post Anesthesia Care Activity Restrictions/Additional Instructions: You are being discharged from the hospital today during which time you have been under the care of Dr. Gibbons. You had a to plateau fracture. You were treated for this injury with open reduction internal fixation of tibial plateau fracture. You may resume you normal diet (including any special diets as directed by your primary doctor) as well as your home medications. You should follow up with you primary doctor if you have any questions regarding medication you took prior to your stay in the hospital. You may take your pain medication as prescribed. After the first few days, take your pain medication as needed. Do not drive or drink alcohol while taking your pain medication. Your injury may increase your risk of developing a blood clot,or DVT, in your arm or leg. This could potentially dislodge and travel to your lungs and become a life threatening condition called apulmonary embolus,or PE. You have been prescribed aspirin 325 to be taken to prevent this. Frequent movement of the legs will also help prevent this from occurring. If you develop any new or worsening cough, chestpain, bloody sputum or shortness of breath, call 911 or go to the EmergencyRoom. Always keep your surgical incision/dressing clean and dry. If you experience increasing pain at your incision site, redness, swelling, increasing discharge, foul odors, or fevers (greater than 100.4), night sweats or chills you should call the office at the above number. If you feel this is an emergency you should be evaluated in the Emergency Department of a nearby hospital. Orthopedic Patient Instructions Summary: Weight Bearing: Nonweightbearing Activity: As tolerated. Diet: Regular. Wound Care: Keep dressing clean and dry. After 48 hours change dressings daily Anticoagulation: Aspirin 325 Pain Medication: Take only as needed. Ice, rest and elevation will be of great benefit. Please plan to follow-up shay Gibbons in 2 weeks. You will need to call the clinic [phone] to schedule this visit. Thank you far allowing me to participate in your care. Do not hesitate to call the office with any questions or concerns. Discharge Attestations Time Spent in Discharge Care*: less than 30 min Quality Metrics Clinical Quality Measures [ No reported AMI, CVA or VTE this stay] Coding Level of Care Code Acute Code for Chg Fwraulito
[2024-05-18] MEDS: oxyCODONE-APAP 5-325 mg Tablet 1 TAB PO (09:07)
--- NOTE | 2024-05-18 09:37 | PC.CHAP ---
Pastoral Care Encounter/Spiritual Assessment Type of Contact [] Declined vendor quality supervisor visit [] Patient/Family/Request visit [] Outpatient visit [] Follow-up visit [] Physician referral [] Code/Alert [x] Routine visit [] Staff referral [] Actively dying [] Patient sleeping [x] Family support [] [] Out of room [] Palliative care [] [] Receiving care in room [] Pre-surgical visit [] Trauma [] Long length of stay [] ICU visit [] Other: Relational/Emotional Strength [x] Patient feels connected with others/family/visitors/staff [] Distress [] Loneliness/isolation [] Abandonment Spirituality of Patient [x] Person of Vicky [] Attends Jain of their Vicky [x] Believes in Prayer [] Reads Bible or Roman Catholic materials [] There are Spiritual issues to be addressed Gard[employer] Manger Interventions [x] Prayer [x] Active listening [] Non-anxious presence [x] Spiritual/emotional support [] Crisis/trauma care [] Spiritual counseling [] Bereavement support [] Provided bereavement packet [] Provided Bible/devotional materials [] Provided toy/stuffed animal, coloring book to patient or family member [] Provided Communion [] Anointing/[place] [] Salvation [x] Completed spiritual assessment [] Other: Impact on Illness or Injury [] Angry [] Fearful [] Anxious [] Often cries [] Exhaustion [] Unable to work [] Unable to attend holiness [] Unable to walk/stand [] Unable to read [] Unable to drive [] Unable to eat/drink [] Unable to sleep [] Unable to be with family [] Patient intubated [] Other: Summary Time spent with patient 5 min
--- NOTE | 2024-05-19 12:08 | W.PM.OPSUD ---
Surgery/Procedure H&P Update DATE OF PROCEDURE: May 19, 2024 DATE H&P PERFORMED: 05/09/24 H&P UPDATE INFORMATION: I have reviewed H&P completed within last 30 days, I have examined patient prior to procedure and No changes to prior documentation PLANNED PROCEDURE: Operation Date: 05/17/24 07:00 Proposed Procedures p ORIF Tibial Plateau(Right) - Curtis Gibbons DO
== END 2024-05-18 10:49 | disposition home or self-care (01) ==
LOC: MEDSURG 11:47
PROVIDERS: Admitting Provider Orthopaedic Surgery; PCP Nurse Practitioner Family; Visit Provider Orthopaedic Surgery
PROC: (CPT 27536; principal; 2024-05-17 07:00)
DX: S82.141A Displaced bicondylar fracture of right tibia, initial encounter for closed fracture (principal); X58.XXXA Exposure to other specified factors, initial encounter; K21.9 Gastro-esophageal reflux disease without esophagitis; E66.9 Obesity, unspecified; Z68.35 Body mass index [BMI] 35.0-35.9, adult
CPT/HCPCS: 27536; 73590; 76000; 97110; 97161; C1713; G0378; J1100; J1170; J1885; J2250; J2270; J2405; J2704; J2795; J3010; J3370; J3490; J7030

== ENCOUNTER → 2024-06-01 13:01 | Outpatient (BNVA) | payer SELFPAY | PROVIDERS: PCP Nurse Practitioner Family; Visit Provider Orthopaedic Surgery | DX: S82.141A Displaced bicondylar fracture of right tibia, initial encounter for closed fracture (principal); X58.XXXA Exposure to other specified factors, initial encounter | CPT/HCPCS: 73590 ==

== ENCOUNTER → 2024-06-29 12:33 | Outpatient (BNVA) | payer SELFPAY | PROVIDERS: PCP Nurse Practitioner Family; Visit Provider Orthopaedic Surgery | DX: S82.141A Displaced bicondylar fracture of right tibia, initial encounter for closed fracture (principal); X58.XXXA Exposure to other specified factors, initial encounter | CPT/HCPCS: 73590 ==

== ENCOUNTER → 2024-08-10 12:41 | Outpatient (BNVA) | payer SELFPAY | PROVIDERS: PCP Nurse Practitioner Family; Visit Provider Orthopaedic Surgery | DX: S82.141A Displaced bicondylar fracture of right tibia, initial encounter for closed fracture (principal); X58.XXXA Exposure to other specified factors, initial encounter | CPT/HCPCS: 73590 ==

== ENCOUNTER 2024-08-11 06:30 | Outpatient (RCR) | payer SELFPAY | END 2024-09-09 23:59 | disposition home or self-care (01) | LOC: WPT 06:30 | PROVIDERS: Visit Provider Orthopaedic Surgery | DX: Z47.89 Encounter for other orthopedic aftercare (principal) | CPT/HCPCS: 97110; 97112; 97161; 97530 ==

== ENCOUNTER 2024-09-10 06:00 | Outpatient (RCR) | payer SELFPAY | END 2024-10-10 23:59 | disposition home or self-care (01) | LOC: WPT 06:00 | PROVIDERS: Visit Provider Orthopaedic Surgery | DX: Z47.89 Encounter for other orthopedic aftercare (principal) | CPT/HCPCS: 97110; 97112; 97116; 97530 ==

== ENCOUNTER 2024-10-11 06:00 | Outpatient (RCR) | payer SELFPAY | END 2024-11-10 23:59 | disposition home or self-care (01) | LOC: WPT 06:00 | PROVIDERS: Visit Provider Orthopaedic Surgery | DX: Z47.89 Encounter for other orthopedic aftercare (principal) | CPT/HCPCS: 97110; 97112; 97530 ==

== ENCOUNTER → 2024-11-09 12:48 | Outpatient (BNVA) | payer SELFPAY | PROVIDERS: PCP Nurse Practitioner Family; Visit Provider Orthopaedic Surgery | DX: S82.141A Displaced bicondylar fracture of right tibia, initial encounter for closed fracture (principal); X58.XXXA Exposure to other specified factors, initial encounter | CPT/HCPCS: 73590 ==

== ENCOUNTER 2024-11-11 05:25 | Outpatient (RCR) | payer SELFPAY | END 2024-12-08 23:59 | disposition home or self-care (01) | LOC: WPT 05:25 | PROVIDERS: PCP Nurse Practitioner Family; Visit Provider Orthopaedic Surgery | DX: Z47.89 Encounter for other orthopedic aftercare (principal) | CPT/HCPCS: 97110; 97112; 97116; 97530 ==

== ENCOUNTER 2024-12-09 06:00 | Outpatient (RCR) | payer SELFPAY | END 2025-01-08 23:59 | disposition home or self-care (01) | LOC: WPT 06:00 | PROVIDERS: PCP Nurse Practitioner Family; Visit Provider Orthopaedic Surgery | DX: Z98.890 Other specified postprocedural states (principal) | CPT/HCPCS: 97110; 97112; 97530 ==

== ENCOUNTER → 2024-12-28 13:44 | Outpatient (BNVA) | payer SELFPAY | PROVIDERS: PCP Nurse Practitioner Family; Visit Provider Orthopaedic Surgery | DX: S82.141A Displaced bicondylar fracture of right tibia, initial encounter for closed fracture (principal); X58.XXXA Exposure to other specified factors, initial encounter | CPT/HCPCS: 73590 ==

== ENCOUNTER 2025-01-08 15:07 | Outpatient (CLI) | payer SELFPAY ==
--- NOTE | 2025-01-08 15:30 | CT_ITS ---
WS: [id number] CT RIGHT KNEE, NONCONTRAST HISTORY: Follow-up tibial plateau fracture. Technique: All CT scans at [facility] use at least one of these dose optimization techniques: automated exposure control; mA and/or kV adjustment per patient size (includes targeted exams where dose is matched to clinical indication); or iterative reconstruction. DLP: 525.62 mGy.cm COMPARISON: Radiograph 12/28/2024, CT 05/02/2024. Plate and screw fixation of the proximal tibial fracture. Mild separation of the proximal tibial plateau fracture by 2.3 mm. Incomplete proximal osseous fusion. Majority of the vertical fracture component is healed. Mild depression of the lateral tibial plateau by 5 mm. No hardware fracture. Proximal fibula is intact. Disuse osteopenia. Femoral condyles are normal. Very small suprapatellar joint effusion. Atherosclerosis in the popliteal arteries. CT/CT knee RT wo con* [id number] IMPRESSION: 1. Status post ORIF proximal tibial fracture. 2. Lateral tibial plateau fracture depressed by 5 mm. 3. No hardware fracture. Normal alignment of the fracture.
== END 2025-01-08 15:08 | disposition home or self-care (01) ==
PROVIDERS: PCP Nurse Practitioner Family; Visit Provider Orthopaedic Surgery
DX: S82.141A Displaced bicondylar fracture of right tibia, initial encounter for closed fracture (principal); X58.XXXA Exposure to other specified factors, initial encounter; Z98.890 Other specified postprocedural states; R93.6 Abnormal findings on diagnostic imaging of limbs; M85.861 Other specified disorders of bone density and structure, right lower leg; I70.8 Atherosclerosis of other arteries
CPT/HCPCS: 73700

== ENCOUNTER → 2025-01-10 09:57 | Outpatient (BNVA) | payer SELFPAY | PROVIDERS: PCP Nurse Practitioner Family; Visit Provider Nurse Practitioner Family | DX: R53.83 Other fatigue (principal); Z79.899 Other long term (current) drug therapy; Z13.6 Encounter for screening for cardiovascular disorders; D64.9 Anemia, unspecified | CPT/HCPCS: 80053; 80061; 81003; 82306; 82607; 82746; 83036; 83550; 84439; 84443; 84481; 85025; 85651; 86140 ==

== ENCOUNTER 2025-01-26 08:41 | Day surgery (SDC) | payer SELFPAY ==
[2025-01-26] VITALS (23 sets, daily range): BP systolic 117–140; BP diastolic 70–86; PULSE 78–108; RESP 10–18; TEMP 36.2–36.9; O2SAT 94–100; BMI 34.3
[2025-01-26] MEDS: sodium chloride 0.9% 1,000 ML 30 ML IV (09:14)
--- NOTE | 2025-01-26 09:35 | P.ANESASSM_ITS ---
Pre-Anesthetic Assessment Height/Weight: Height 1.63 m Weight 90.718 kg Temp Pulse Resp BP Pulse Ox O2 Del Method 98.3 F 86 18 137/82 97 Room Air 01/26/25 08:56 01/26/25 08:56 01/26/25 08:56 01/26/25 08:56 01/26/25 08:56 01/26/25 08:56 Preop Diagnosis: Painful orthopedic hardware right knee Operation Date: 01/26/25 10:25 Proposed Procedures p Hardware Removal Knee(Right) - Curtis Gibbons DO Familial anesthetic complications: none Was Beta Maryjo taken within 24 hours: N/A Was Clonidine taken within 24 hours: N/A Last intake: Intake Last Liquid Date 01/25/25 Last Liquid Time 21:00 Last Solid Date 01/25/25 Last Solid Time 16:00 Social No alcohol and No tobacco Airway Submandibular: within normal limits Cervical ROM: within normal limits Mallampati: Class II Dentition: full CV/HEM Anemia Metabolic Morbid Obesity Neuropsych Anxiety and Depression Anesthetic Plan ASA status: 2 Anesthesia: General Medications/Allergies Home Medications ?Medication ?Instructions ?Recorded ?Confirmed ?Last Taken ?Type acetaminophen 325 mg capsule 500 mg PO DAILY 05/16/24 01/26/25 2 Months Ago History (Tylenol) ~11/28/24 ibuprofen 200 mg tablet 200 mg PO Q6H PRN Pain 06/2901/26/25 01/24/25 History naproxen 375 mg tablet 375 mg PO TID PRN Pain (Scal e 11/09/24 01/26/25 Unknown History Score 1-3) tramadol 50 mg tablet 50 mg PO DAILY PRN pain 30 d ays 12/04/24 01/26/25 Unknown Rx #30 tabs ciprofloxacin HCl 250 mg tablet 250 mg PO BID 5 days # 10 tabs 01/12/25 01/26/25 01/25/25 Rx (Cipro) ferrous gluconate 324 mg (38 mg 324 mg PO DAILY 30 day s #30 tabs 01/12/25 01/26/25 Unknown Rx iron) tablet folic acid 1 mg tablet 1,000 mcg PO DAILY 30 days # 30 tabs 01/12/25 01/26/25 Unknown Rx Allergies Allergy/AdvReac Type Severity Reaction Status Date / Time apixaban (From Eliquis) Allergy Intermediate rash Verified 11/09/24 13:02 Penicillins Allergy Unknown Verified 11/09/24 13:02 sulfamethoxazole (From Allergy RASH Verified 11/09/24 13:02 Bactrim) trimethoprim (From Bactrim) Allergy RASH Verified 11/09/24 13:02 Current Medications Generic Name Dose Route Start Last Admin Trade Name Freq PRN Reason Stop Dose Admin Sodium Chloride 1,000 mls @ 30 mls/hr 01/26/25 08:45 01/26/25 09:14 Sodium Chloride 0.9% IV 01/27/25 08:44 30 mls/hr .Q24H ROBLES Administration PFSH Anesthesia Medical History (Updated 01/12/25 @ 12:42 by MICHELLE Lora) UTI symptoms Iron deficiency anemia Folic acid deficiency Anemia Encounter for screening for cardiovascular disorders Medication management Fatigue Otitis media, left Cerumen impaction Depression Right leg pain Hot flashes Obesity (BMI 30-39.9) Social History Smoking and tobacco/nicotine status: unknown if used tobacco/nicotine Second hand smoke exposure: No Alcohol intake: never 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
--- NOTE | 2025-01-26 09:55 | W.PM.OPSUD ---
Surgery/Procedure H&P Update DATE OF PROCEDURE: January 26, 2025 DATE H&P PERFORMED: 01/11/25 H&P UPDATE INFORMATION: I have reviewed H&P completed within last 30 days, I have examined patient prior to procedure and No changes to prior documentation PREOP DIAGNOSIS: Painful orthopedic hardware right knee PLANNED PROCEDURE: Operation Date: 01/26/25 10:25 Proposed Procedures p Hardware Removal Knee(Right) - Curtis Gibbons DO
[2025-01-26] MEDS: clindamycin 600 MG/50 ML PREMIX 100 MG IV (10:17)
[2025-01-26] MEDS: VANCOMYCIN ADD-Vantage 1,000 MG VIAL 1000 MG XX (10:55)
[2025-01-26] MEDS: lidocaine-epi 1% 20 mL INJ INJECTION (10:55)
--- NOTE | 2025-01-26 11:02 | PC.NURSE ---
Hardware Patient's hardware delivered to central sterilization to be sterilized for patient to take home.
--- NOTE | 2025-01-26 11:44 | PM.OP ---
Operative Report Date of procedure: January 26, 2025 Pre-op diagnosis: Painful orthopedic hardware right tibia Post-op diagnosis: same Procedure done: Removal of deep hardware from right tibia Surgeon: Curtis Gibbons DO Estimated blood loss (mL): 10 45 Procedure: Removal of deep hardware from right tibia Patient brought to the operative suite after an Gon[place] was placed in supine position on his impingement well-padded patient's prepped draped normal sterile fashion. Tourniquet was put up skin incisions made laterally first using previous skin incision. Dissection was made down to the plate. Once the plate is identified the screws were identified screws were backed out and plate was removed. Next attention was brought to the medial side. Skin incision was made the plate was then dissected out pes tendon was dissected out. Brought anteriorly. The plate was identified screws were backed out screws were taken down and then the plate was removed. Wounds were irrigated vancomycin powder was placed cultures were taken from the medial side prior to this. Wounds were then closed in layered fashion with 0 Vicryl 2-0 Vicryl and Monocryl suture. Sterile dressings were applied and patient was transferred to the PACU in stable condition..
[2025-01-26] MEDS: fentaNYL 50 mcg/mL INJ 2mL IVP ×2 (11:49→12:03)
--- NOTE | 2025-01-26 12:10 | ANE.PACU2 ---
Inpatient post-anesthesia follow up: Airway intact: Yes Vital signs: Temperature 97.1 F Pulse Rate 93 Respiratory Rate 12 Blood Pressure 134/71 Pulse Oximetry 100 Oxygen Delivery Me thod Simple Mask Oxygen Flow Rate 6 Fraction of Inspir ed Oxygen Hydration adequate: Yes Nausea and vomiting: No Pain level: 2 Mental status: Baseline
[2025-01-26] MEDS: HYDROmorphone 1 mg/mL INJ 1ml 0.5 MG IVP ×2 (12:19→12:35)
--- NOTE | 2025-01-26 13:05 | PC.NURSE ---
1250- pt talking and vs stable. states pain normally at a 5. resp even an unlaobred. report to stacie
[2025-01-26] MEDS: HYDROcodone-acetaminophen 5-325 mg Tablet 1 TAB PO (13:17)
--- NOTE | 2025-01-26 13:55 | XR_ITS ---
WS: [id number] Exam: XR knee RT 1-2V [id number] Date/Time of Exam: 01/26/2025 1:55 PM Reason For Exam: or pic, decompression Single AP intraoperative C-arm image of the RIGHT knee is submitted. The image confirms removal of previously noted upper tibial hardware.
== END 2025-01-26 13:52 | disposition home or self-care (01) ==
PROVIDERS: PCP Nurse Practitioner Family; Visit Provider Orthopaedic Surgery
PROC: (CPT 20680; principal; 2025-01-26 10:15)
DX: T84.84XA Pain due to internal orthopedic prosthetic devices, implants and grafts, initial encounter (principal); E66.01 Morbid (severe) obesity due to excess calories; Z68.34 Body mass index [BMI] 34.0-34.9, adult; Z79.899 Other long term (current) drug therapy; Z88.0 Allergy status to penicillin; Z88.2 Allergy status to sulfonamides; Z88.8 Allergy status to other drugs, medicaments and biological substances
CPT/HCPCS: 20680; 72020; 73560; 76000; 87070; 87075; 87205; J1171; J1200; J2250; J2704; J3010; J3370; J3490; J7030; J9999

== ENCOUNTER 2025-02-08 06:00 | Outpatient (RCR) | payer SELFPAY | END 2025-03-10 23:55 | disposition home or self-care (01) | LOC: WPT 06:00 | PROVIDERS: Visit Provider Orthopaedic Surgery | DX: Z98.890 Other specified postprocedural states (principal) | CPT/HCPCS: 97110; 97112; 97161; 97530 ==

== ENCOUNTER → 2025-03-06 13:43 | Outpatient (BNVA) | payer SELFPAY | PROVIDERS: PCP Nurse Practitioner Family; Visit Provider Orthopaedic Surgery | DX: S82.141A Displaced bicondylar fracture of right tibia, initial encounter for closed fracture (principal); Z98.890 Other specified postprocedural states; X58.XXXA Exposure to other specified factors, initial encounter | CPT/HCPCS: 73590 ==

== ENCOUNTER 2025-03-11 05:00 | Outpatient (RCR) | payer SELFPAY | END 2025-04-09 23:59 | disposition home or self-care (01) | LOC: WPT 05:00 | PROVIDERS: PCP Nurse Practitioner Family; Visit Provider Orthopaedic Surgery | DX: Z47.89 Encounter for other orthopedic aftercare (principal) | CPT/HCPCS: 97110; 97112; 97530 ==

== ENCOUNTER → 2025-03-27 08:46 | Outpatient (BNVA) | payer SELFPAY | PROVIDERS: PCP Nurse Practitioner Family; Visit Provider Orthopaedic Surgery | DX: Z98.890 Other specified postprocedural states (principal) | CPT/HCPCS: 73590 ==

== ENCOUNTER 2025-04-10 05:00 | Outpatient (RCR) | payer SELFPAY | END 2025-05-10 23:59 | disposition home or self-care (01) | LOC: WPT 05:00 | PROVIDERS: PCP Nurse Practitioner Family; Visit Provider Orthopaedic Surgery | DX: Z98.890 Other specified postprocedural states (principal) | CPT/HCPCS: 97110; 97112; 97530 ==